=== PATIENT | female | born 1995 | race Caucasian/White ===

== ENCOUNTER 2018-08-06 11:08 | Outpatient (CLI) | payer OTHER ==
[~2018-08-06] VITALS: Ht 167.6 cm; Wt 80.2 kg
[~2018-08-06 11:08] MED LIST: PNV11TAB PO
[2018-08-06 11:24] VITALS: Ht 167.6 cm; Wt 80.2 kg
[2018-08-06 11:25] VITALS: BP 110/71; PULSE 84
--- NOTE | 2018-08-06 14:28 | PN ---
Triage Information Date/Time 08/06/1801/16/1424 Reason for visit: Uterine contractions Weeks of Gestation 35w3d /Para Diabetes: none Hypertention: none Additional information uc's 4/hr pain level 12/07 Objective Vital Signs Date Temp Pulse Resp B/P (MAP) Pulse Ox O2 O2 Flow FiO2 Time Delivery Rate 08/06/18 98.4 84 110/71 11:25 (84) Heart Rate: 140's Heart Rate Comments CAT I tracing Contractions: >10 Minutes Apart Results/Medications Results 24 hrs Laboratory Tests Test 08/06/18 11:30 Urine Color YELLOW Urine Clarity SLIGHTLY CLOUDY A Urine pH 6.0 Urine Specific [place] 1.011 Urine Ketones NEGATIVE Urine Nitrite NEGATIVE Urine Bilirubin NEGATIVE Urine Urobilinogen NEGATIVE Urine Leukocyte Esterase NEGATIVE Urine Microscopic RBC 0 Urine Microscopic WBC 2 Urine Squamous Epithelial Cells MODERATE Urine Bacteria FEW A Urine Hemoglobin 1+ H Urine Glucose NEGATIVE Urine Total Protein NEGATIVE Imaging Results BPP 8 ROSHNI 12.3 Disposition: Discharge Assessment/Plan A IUP 35w3d uc's resolved P discharged with instructions drink more water with rest RTH prn with routine laboe instructions RADHA PEDRO MD August 06, 2018 14:28
--- NOTE | 2018-08-06 16:25 | TRIAGE ---
OB Triage Datetime Report Generated by CPN: 08/06/2018 16:25 Datetime: 08/06/2018 13:38 Stage of : OB Triage Datetime: 08/06/2018 13:36 Labor Evaluation Frequency: 0 Monitor Mode: External Pattern: Normal: <= 5 Contractions in 10 Minutes Resting Tone [place]: Relaxed Heart Rate FHR Baseline Rate: 135 Monitor Mode: External US Variability: Moderate 6-25 bpm Accelerations: 10X10 Decelerations: None Category: Category I Pain Assessment Pain Scale: 0 Pain Presence: None/Denies Pain Type: N/A Pain Goal: 3 Pain Relief Measures: Comfort Measures Datetime: 08/06/2018 12:58 Labor Evaluation Frequency: 0 Monitor Mode: External Pattern: Normal: <= 5 Contractions in 10 Minutes Resting Tone [place]: Relaxed Heart Rate FHR Baseline Rate: 135 Monitor Mode: External US Variability: Moderate 6-25 bpm Accelerations: 10X10 Decelerations: None Category: Category I Pain Assessment Pain Scale: 4 Pain Presence: Intermittent Pain Type: Cramping Pain Goal: 3 Pain Relief Measures: Comfort Measures Datetime: 08/06/2018 12:03 Labor Evaluation Frequency: occas Monitor Mode: External Duration (sec)2399: 40-60 Quality: Mild Pattern: Normal: <= 5 Contractions in 10 Minutes Resting Tone [place]: Relaxed Heart Rate FHR Baseline Rate: 135 Monitor Mode: External US Variability: Moderate 6-25 bpm Accelerations: 10X10 Decelerations: None Category: Category I Pain Assessment Pain Scale: 5 Pain Presence: Intermittent Pain Type: Cramping Pain Location: Perineum Pain Goal: 3 Pain Relief Measures: Comfort Measures Datetime: 08/06/2018 11:47 Stage of : OB Triage Datetime: 08/06/2018 11:21 Stage of : OB Triage Assessment Type: Triage Maternal Assessment Level of Consciousness: Fully Conscious DTR's/Clonus: DTRs 2+; No Clonus Headache: Denies Blurred Vision: No Respiratory Effort: Unlabored; Regular Rhythm; Equal Expansion Breath Sounds, Left: Clear and Equal Breath Sounds, Right: Clear and Equal Nausea/Vomiting: Denies RUQ Epigastric Pain: Denies Facial Edema: None Temperature Route: Axillary Fall Risk Assessment History of Falling: (0) No Secondary Diagnosis: (0) No Ambulatory Aid: (0) Bedrest/Nurse Assist IV Therapy: (0) No Gait: (0) Normal/Bedrest/Immobile Mental Status: (0) Oriented to Own Ability Fall Score: 0 Fall Risk Score Definition: No Risk: No action required Labor Evaluation Frequency: X1 Monitor Mode: External Duration (sec)2399: 30 Quality: Mild Pattern: Normal: <= 5 Contractions in 10 Minutes Resting Tone [place]: Relaxed Heart Rate FHR Baseline Rate: 135 Monitor Mode: External US Variability: Moderate 6-25 bpm Accelerations: 10X10 Decelerations: None Category: Category I Pain Assessment Pain Scale: 9 Pain Presence: Intermittent Pain Type: Cramping; Contraction Pain Location: Abdomen Pain Goal: 3 Pain Relief Measures: Comfort Measures Datetime: 08/06/2018 11:20 Time of Arrival: 08/06/2018 11:00 EGA: 35.3 Arrived By: Ambulatory Arrived From: Home Chief Complaint: C/O UC'S THIS AM, DENIES BLEEDING OR LEAKING Movement: Present Contractions: Irregular Contractions: 4 IN ONE HOUR Rupture of Membranes: Denies Vaginal Bleeding: None Vaginal Discharge: Denies Recent Sexual Intercouse: Denies Abdominal Trauma: Not Applicable Patient Complaints: Contractions; Cramping Time Provider Notified: 08/06/2018 11:47 Provider Notified: eshaghian Initial Plan: MONITOR, bpp, u/a c_s Datetime: 05/01/2018 16:29 Fall Score: 0 Fall Risk Score Definition: No Risk: No action required Datetime: 05/01/2018 16:27 EGA: 21.4
== END 2018-08-06 13:55 | disposition home or self-care (01) ==
LOC: OBT 11:08 → L-D 11:10 → OBT 13:55
PROVIDERS: ATTEND Obstetrics & Gynecology
DX: O62.9 Abnormality of forces of labor, unspecified (principal); Z3A.35 35 weeks gestation of pregnancy
CPT/HCPCS: 76818; 81001; 87086; Z7500; G0463

== ENCOUNTER 2018-08-26 14:09 | Inpatient (IN) | payer OTHER ==
[~2018-08-26] VITALS: Ht 167.6 cm; Wt 80.8 kg
[2018-08-26] MEDS ORDERED: CEFAZOLIN 2 GM/50 ML (PMX) 50 ML IVPB ONE ×2 (14:50)
[2018-08-26] MEDS: LACTATED RINGER'S 1,000 ML IV SCH ×2 (14:57→20:12)
[2018-08-26] MEDS ORDERED: MISOPROSTOL 200 MCG TAB PR PRN (15:00)
[2018-08-26] MEDS ORDERED: IBUPROFEN 600 MG TAB PO PRN (15:00)
[2018-08-26] MEDS ORDERED: LIDOCAINE 1% (MPF) 30 ML INJ INJ PRN (15:00)
[2018-08-26] MEDS ORDERED: OXYTOCIN 30 UNITS/LR 500 ML IV PRN (15:00)
[2018-08-26] MEDS ORDERED: METHYLERGONOVINE 0.2 MG INJ IM PRN (15:00)
[2018-08-26] MEDS ORDERED: CARBOPROST 250 MCG INJ IM PRN (15:00)
[2018-08-26] MEDS ORDERED: BUTORPHANOL 2 MG INJ IV PRN ×2 (15:00)
[2018-08-26] MEDS ORDERED: OXYTOCIN 30 UNITS/LR 500 ML IV SCH (15:00)
[2018-08-26 15:57] VITALS: Ht 167.6 cm; Wt 80.8 kg
[2018-08-27] MEDS ORDERED: OXYTOCIN 30 UNITS/LR 500 ML IV SCH (00:30)
[2018-08-27] MEDS: CLINDAMYCIN 900 MG/D5W (PMX) 50 ML IVPB SCH ×2 (07:53→14:54)
[2018-08-27] MEDS ORDERED: FENTAnyl 2MCG/ML-ROPIV 0.2% 100 ML ONE (11:17)
[2018-08-27] MEDS: LACTATED RINGER'S 1,000 ML IV SCH (11:24)
--- NOTE | 2018-08-27 11:28 | PREAC ---
Date/Time of Note Date/Time of Note DATE: 08/27/18 TIME: 11: Anesthesia Eval and Record Evaluation Time Pre-Procedure Interview DATE: 08/27/18 TIME: 11: Age 22 Sex female NPO: 8 hrs Preoperative diagnosis Labor Pain Planned procedure Labor Epidural Past Medical History Past Medical History: Includes : : (2), Para: (1), Gestational age: (38) Surgery & Anesthesia Issues No known issue Meds Anticoagulation: No Beta Rafa within 24 hr: No Reason Beta Rafa not given: Pt. not on B-Rafa Reported Medications [id number] ( 19) 1 Each Tablet, 1 TAB PO DAILY, TAB 05/01/18 Current Medications Lactated Ringer's 1,000 ml @ 125 mls/hr Q8H IV Last administered on 08/27/18at 11:24; Admin Dose 125 MLS/HR; Start 08/26/18 at 14:41 Butorphanol Tartrate (Stadol) 1 mg Q2H PRN IV .PAIN SCALE 1-5; Start 08/26/18 at 15:00 Butorphanol Tartrate (Stadol) 2 mg Q2H PRN IV .PAIN SCALE 6-10 Last administered on 08/27/18at 10:30; Admin Dose 2 MG; Start 08/26/18 at 15:00 Lidocaine (Xylocaine 1% (Mpf)) 30 ml ONCE PRN INJ .EPISIOTOMY; Start 08/26/18 at 15:00 Oxytocin/Lactated Ringer's 500 ml @ 500 mls/hr ONCE POST IV ; Start 08/26/18 at 15:00 Oxytocin/Lactated Ringer's 500 ml @ 125 mls/hr POST IV ; Start 08/26/18 at 15:00 Ibuprofen (Motrin) 600 mg ONCE PRN PO .PAIN 1-5; Start 08/26/18 at 15:00 Oxytocin/Lactated Ringer's 500 ml @ 0 mls/hr ONCE PRN IV .VAGINAL BLEEDING; Start 08/26/18 at 15:00 Methylergonovine Maleate (Methergine) 0.2 mg ONCE PRN IM .VAGINAL BLEEDING; Start 08/26/18 at 15:00 Carboprost Tromethamine (Hemabate) 250 mcg ONCE PRN IM .VAGINAL BLEEDING; Start 08/26/18 at 15:00 Misoprostol (Cytotec) 1,000 mcg ONCE PRN MA .VAGINAL BLEEDING; Start 08/26/18 at 15:00 Oxytocin/Lactated Ringer's 500 ml @ 0 mls/hr FOR AUGMENTATION IV Last admini stered on 08/27/18at 00:55; Admin Dose 1 MLS/HR; Start 08/27/18 at 00:30 Clindamycin HCl/ Dextrose 50 ml @ 100 mls/hr Q8 IVPB Last administered on 08/27/18at 07:53; Admin Dose 100 MLS/HR; Start 08/27/18 at 07:30 Meds reviewed: Yes Allergies Coded Allergies: Penicillins (Verified Allergy, Mild, 04/25/12) Allergies Reviewed: Yes Labs/Studies Labs Reviewed: Reviewed by anesthesiologist Result Diagram: 08/26/18 1430 Laboratory Tests 08/26/18 14:30 Blood Bank Test 08/26/18 14:30 Antibody Screen NEGATIVE Blood Type O POSITIVE Rh Immune Globulin Candidate NO test: Positive Studies: ECG (n/a), CXR (n/a) Pre-procedure Exam Airway: Adequate mouth opening, Adequate thyromental dist Mallampati: Mallampati II Teeth: Normal Lung: Normal Heart: Normal ASA Physical Status ASA physical status: 2 Emergency: None Planned Anesthetic Neuraxial: Epidural Planned Pain Management Epidural Pre-operative Attestations Prior to commencing anesthesia and surgery, the patient was re-evaluated, there was verification of: *The patient's identity *The results of appropriate recent lab work and preoperative vital signs *The above evaluation not changing prior to induction *Anesthetic plan, risk benefits, alternative and complications discussed with patient/family; questions answered; patient/family understands, accepts and wi shes to proceed. IESHA MIN MD August 27, 2018 11:28
--- NOTE | 2018-08-27 11:29 | PAC ---
Date/Time of Note Date/Time of Note DATE: 08/27/18 TIME: 11:29 Post-Anesthesia Notes Post-Anesthesia Note Last documented vital signs T: 98.0 Activity: WNL Respiratory function: WNL Cardiovascular function: WNL Mental status: Baseline Pain reasonably controlled: Yes Hydration appropriate: Yes Nausea/Vomiting absent: Yes IESHA MIN MD August 27, 2018 11:29
[2018-08-27] MEDS ORDERED: NALOXONE (0.4 MG/ML) INJ IV PRN (11:30)
[2018-08-27] MEDS ORDERED: FENTAnyl 2MCG/ML-ROPIV 0.2% 100 ML BAG EPI SCH (11:30)
[2018-08-27] MEDS ORDERED: MINERAL OIL LIGHT 10 ML VIAL TOP ONE (12:00)
[2018-08-27] MEDS: OXYTOCIN 30 UNITS/LR 500 ML IV SCH ×2 (15:28→17:18)
--- NOTE | 2018-08-27 16:29 | LDN ---
Date/Time of Note Date/Time of Note DATE: 08/27/18 TIME: 16:07 Delivery Summary of normal male Weeks of Gestation 38w2d Placenta Delivered: Spontaneously, Intact & Complete Meconium: none Episiotomy: No Perineal laceration: 0 Anesthesia type: Epidural Estimated blood loss: 100 Sponge & Needle done & correct: Yes All needle counts correct: Yes Any foreign bodies felt in the: No Infant Delivery Information Sex Infant Sex: male Apgars 1 Minute: 9 5 Minute: 9 Suctioning Nose & mouth suctioned at lisebt: Yes Delee suction performed: Yes Umbilical Cord Umbilical cord with: 3 Vessels Cord presentations: no nuchal cord Cord Blood was obtained: Yes Mother & Baby Disposition Disposition Mom & Baby to Maternity; Good: Yes Mom transferred to: Other Baby to NICU: No () RADHA PEDRO MD August 27, 2018 16:17
--- NOTE | 2018-08-27 16:36 | HP ---
Date/Time of Note Date/Time of Note DATE: 08/27/18 TIME: 16:31 OB - History Hx of Present Free Text/Dictation 22 y.o at 38w2d with leaking fluid with uc's Initial VE /-2 no record is available GBS neg admitted for pitocin augmentation Chief Complaint: leaking fluid Estimated Due Date: Sep 08, 2018 : 1 Para: 0 Spontaneous : 0 Therapeutic : 0 Care: Other Ultrasounds: Other Obstetrical Complications: None Medical Complications: None Past Family/Social History * Past Medical, Surgical, Family and Obstetric Histories reviewed from chart. Rubella: immune RPR/VDRL: Negative GBS Status: Negative HBsAG: Negative OB Admission Exam Physical Exam HEENT: WNL Cervical Dilatation: 4cm Effacement: 75% Station: -2 Membranes: Ruptured Amniotic Fluid: Clear Heart Rate: 140's Accelerations: Accelerations Present Decelerations: No Decelerations Varibility: Moderate Contractions on Admission: < 5 Minutes Apart Intensity: Moderate Last 72 hours Lab Results CBC & BMP 08/26/18 14:30 OB Assessment/Plan Reason for admission: active labor, rupture of membranes Other Assessment: [id number] Plan: Expectant Management, Other (poss augmentation) RADHA PEDRO MD August 27, 2018 16:36
[2018-08-27 17:30] VITALS: BP 111/71; PULSE 65; RESP 18
[2018-08-27] MEDS ORDERED: LANOLIN HPA 1 PKT TOP PRN (18:30)
[2018-08-27] MEDS ORDERED: OXYCODONE/ASPIRIN (4.88/325) TAB PO PRN (18:30)
[2018-08-27] MEDS ORDERED: METHYLERGONOVINE 0.2 MG INJ IM PRN (18:30)
[2018-08-27] MEDS ORDERED: WITCH HAZEL/GLYCERIN PAD PR PRN (18:30)
[2018-08-27] MEDS ORDERED: ZOLPIDEM 5 MG TAB PO PRN (18:30)
[2018-08-27] MEDS ORDERED: MISOPROSTOL 200 MCG TAB PR PRN (18:30)
[2018-08-27] MEDS ORDERED: CARBOPROST 250 MCG INJ IM PRN (18:30)
[2018-08-27] MEDS ORDERED: OXYTOCIN 30 UNITS/LR 500 ML IV PRN (18:30)
[2018-08-27] MEDS ORDERED: BENZOCAINE 20% 56 ML SPRAY TOP PRN (18:30)
[2018-08-27 20:00] VITALS: BP 103/65; PULSE 80; RESP 16
[2018-08-27] MEDS: SENNA/DOCUSATE NA (8.6MG/50MG) TAB PO SCH (22:41)
[2018-08-28] MEDS: IBUPROFEN 600 MG TAB PO SCH ×4 (00:41→18:00)
[2018-08-28 04:00] VITALS: BP 98/65; PULSE 63; RESP 18
[2018-08-28 08:00] VITALS: BP 96/64; PULSE 78; RESP 18
[2018-08-28] MEDS: SENNA/DOCUSATE NA (8.6MG/50MG) TAB PO SCH ×2 (09:37→21:19)
--- NOTE | 2018-08-28 11:13 | QN ---
Documentation Comment PPD #1 Pt feels well and is w/o a problem. T=98.2 BP 96/54 Fundus firm. Lochia minimal Ext NT, no edema. WBC 12.6 Hgb 11.9 Plts 184K P: Continue care. ARIANNA SHAY MD Aug 28, 2018 11:13
[2018-08-28] MEDS: OXYCODONE/ASPIRIN (4.88/325) TAB PO PRN ×2 (15:24→21:21)
[2018-08-28 16:03] VITALS: BP 104/57; PULSE 74; RESP 18
[2018-08-28 19:25] VITALS: BP 110/60; PULSE 59; RESP 18
[2018-08-29] MEDS: IBUPROFEN 600 MG TAB PO SCH ×3 (00:34→12:18)
[2018-08-29 04:00] VITALS: BP 102/60; PULSE 62; RESP 18
[2018-08-29] MEDS: SENNA/DOCUSATE NA (8.6MG/50MG) TAB PO SCH (07:58)
[2018-08-29] MEDS: OXYCODONE/ASPIRIN (4.88/325) TAB PO PRN (07:59)
[2018-08-29 08:00] VITALS: BP 106/65; PULSE 77; RESP 18
[2018-08-29] MEDS ORDERED: DIPHTH/TET/ACEL PERTUSS (ADULT) 0.5 ML VIAL IM* ONE (09:00)
--- NOTE | 2018-08-29 14:46 | QN ---
Documentation Comment PPD#2 is astable afebrile tolerates diet No VB +BM +Voids VS stable Gen NAD Abd soft NT ND Genitalia No blood at perineum --->Discharge plan KAYLEY KABA M.D. Aug 29, 2018 14:46
--- NOTE | 2018-08-29 14:47 | DS ---
Date/Time of Note Date/Time of Note DATE: 08/29/18 TIME: 14:46 Discharge Summary Admission/Discharge Info Admit Date/Time August 26, 2018 at 15:25 Discharge Date/Time 08/29/2018 Discharge Diagnosis Patient Condition: Good Hospital Course uneventful Home Meds Reported Medications [id number] ( 19) 1 Each Tablet, 1 TAB PO DAILY, TAB 05/01/18 Primary Care Provider Not On Staff Doctor KAYLEY KABA M.D. Aug 29, 2018 14:47
--- NOTE | 2018-08-30 15:49 | DELSUM ---
Delivery Summary A-C Datetime Report Generated by CPN: 08/30/2018 15:49 DELIVERY PERSONNEL Nonprofit Financial Controller: Sebunnya, Phoebe MATERNAL INFORMATION Delivery Anesthesia: Epidural Medications in Delivery: 30 units pitocin LR 500ML Delivery QBL (ml): 100 Placenta Cultured: No Maternal Complications: None RN Comments: Spenser GUADARRAMA RN ORT LABOR SUMMARY EDC: 09/07/2018 00:00 No. Babies in Womb: 1 Attempted: No Labor Anesthesia: Epidural LABOR INFORMATION Reason for Induction: Not Applicable Onset of Labor: 08/27/2018 01:00 Complete Dilatation: 08/27/2018 14:55 Oxytocin: Augmentation Group B Beta Strep: Negative Antibiotics # of Doses: 3 Antibiotics Time of Last Dose: 08/27/2018 14:54 Steroids Given: None Reason Steroids Not Administered: Not Applicable MEMBRANES Membranes Rupture Method: Spontaneous Rupture of Membranes: 08/26/2018 13:03 Length of Rupture (hr): 25.98 Amniotic Fluid Color: Clear Amniotic Fluid Amount: Large Amniotic Fluid Odor: Normal STAGES OF LABOR Stage 1 hr: 13 Stage 1 min: 55 Stage 2 hr: 0 Stage 2 min: 7 Stage 3 hr: 0 Stage 3 min: 7 Total Time in Labor hr: 14 Total Time in Labor min: 9 VAGINAL DELIVERY Episiotomy: None Laceration Extension: N/A Laceration Type: None Laceration Repair: Not Applicable Initial Vag Sponge Count: 10 Final Vag Sponge Count: 10 Initial Vag Sharps Count: 1 (Annotations: Data stored by N on behalf of user) Final Vag Sharps Count: 1 Sponge Count Correct: Yes; Vaginal Sweep Performed Sharps Count Correct: Yes BABY A INFORMATION Delivery Date/Time: 08/27/2018 15:02 Method of Delivery: Vaginal Born in Route : No : N/A Forceps: N/A Vacuum Extraction: N/A Shoulder Dystocia : N/A SHOULDER DYSTOCIA BABY A Infant Delivery Date/Time: 08/27/2018 15:02 PRESENTATION/POSITION BABY A Presentation: Cephalic Cephalic Presentation: Vertex Vertex Position: Left Occipital Anterior Breech Presentation: N/A PLACENTA INFORMATION BABY A Placenta Delivery Time : 08/27/2018 15:09 Placenta Method of Delivery: Spontaneous Placenta Status: Delivered SCORES BABY A Heart Rate 1 min: >100 bpm Resp Effort 1 min: Good Cry Reflex Irritability 1 min: Cough/Sneeze/Pulls Away Muscle Tone 1 min: Active Motion Color 1 min: Body [place], Extremit Blue Resuscitation Effort 1 min: Tactile Stimulation SCORE 1 MIN: 9 Heart Rate 5 min: >100 bpm Resp Effort 5 min: Good Cry Reflex Irritability 5 min: Cough/Sneeze/Pulls Away Muscle Tone 5 min: Active Motion Color 5 min: Body [place], Extremit Blue Resuscitation Effort 5 min: Tactile Stimulation SCORE 5 MIN: 9 INFANT INFORMATION BABY A Gestational Age at Delivery: 38.3 Gestational Status: Early Term- 37- 38.6 Weeks Infant Outcome : Liveborn Condition : Stable Sex: Male IDENTIFICATION/MEDS BABY A ID Band Number: [id number] ID Band Location: Right Leg; Left Arm Sensor Applied: Yes Sensor Number: [id number] Sensor Location : Cord Clamp Vitamin K Given : Not Given Erythromycin Given: Not Given WEIGHT/LENGTH BABY A Infant Birthweight (gm): 3390 Weight (lb): 7 Infant Weight (oz): 8 Infant Length (in): 20.00 Length (cm): 50.80 CORD INFORMATION BABY A No. Cord Vessels: 3 Nuchal Cord : N/A Nuchal Cord- Other: 0 True Knot: 0 Cord Blood Taken: Yes Banking/Donate Info: no Infant Suction: Mouth; Nose ASSESSMENT BABY A Complications: Multiple Variable Decels Physical Findings at Delivery: Within Normal Limits Physical Findings- Other: MOTHER SROM 08/27/2018 AT 1303 CLEAR [place] NORMAL ODOR Respirations: Appears Normal Single Ending Machine Operator/ALS Called : No Care By: HAMLET PETIT Transferred To: Remains with Mother
== END 2018-08-29 15:35 | disposition home or self-care (01) | DRG 807 ==
LOC: OBT 14:09 → L-D 14:10 → OBT 15:25 → L-D 15:25 → PP1 08-27 17:22
PROVIDERS: ADMIT Obstetrics & Gynecology; ATTEND Obstetrics & Gynecology
PROC: 10E0XZZ Delivery of Products of Conception, External Approach (ICD-10-PCS; principal; 2018-08-27)
DX: O80 Encounter for full-term uncomplicated delivery (principal); Z37.0 Single live birth; Z3A.38 38 weeks gestation of pregnancy
CPT/HCPCS: 62322; 76815; 85025; 85610; 85730; 86592; 86850; 86900; 86901; 87340; J0595; J0690; J2590; J3010; J7120